=== PATIENT | female | born 1995 | race American Indian/Alaskan Native ===

== ENCOUNTER 2019-11-02 12:20 | Outpatient (CLI) | payer MEDICAID ==
[2019-11-02 13:40] LABS: Bacteria,Urine 3+ /HPF (Negative); Bilirubin,Urine NEG (Negative); Blood,Urine NEG (Negative); Color,Urine Yellow (Yellow); Mucus,Urine FEW /HPF; Protein,Urine <15 mg/dL mg/dL (Negative); Urobilinogen,Urine < 2.0 mg/dL (<2.0)
[2019-11-02] MEDS ORDERED: LACTATED RINGERS 500 ML IV ONE (13:43)
[2019-11-02 14:01] VITALS: BP 114/69
== END 2019-11-02 14:36 | disposition home or self-care (01) ==
LOC: TRG 12:20
PROVIDERS: ATTEND Obstetrics & Gynecology
DX: O26.893 Other specified pregnancy related conditions, third trimester (principal); R10.9 Unspecified abdominal pain; M54.5 Low back pain; O47.03 False labor before 37 completed weeks of gestation, third trimester; Z3A.32 32 weeks gestation of pregnancy
CPT/HCPCS: 81001; 96360; J7120

== ENCOUNTER 2019-12-26 18:24 | Outpatient (CLI) | payer MEDICAID ==
[2019-12-26 19:26] VITALS: BP 118/76
[2019-12-26] MEDS ORDERED: hydrOXYzine HCL 100 MG/2 ML INJ IM ONE (21:01)
[2019-12-26] MEDS ORDERED: ACETAMINOPHEN W/CODEINE 300-30 MG TAB PO PRN (21:02)
== END 2019-12-26 21:30 | disposition home or self-care (01) ==
LOC: TRG 18:24
PROVIDERS: ATTEND Obstetrics & Gynecology
CPT/HCPCS: Q0177